=== PATIENT | female | born 1950 | race Hispanic/Latino ===

== ENCOUNTER 2016-11-09 09:05 | Observation (INO) | payer OTHER ==
[2016-11-09 10:13] LABS: BASO % 0.6 % (0.0-2.0); EOS # 0.1 K/uL (0.0-0.7); EOS % 2.2 % (0.0-4.0); HEMOGLOBIN 12.5 g/dL (11.0-16.0); LYMPH # 3.3 K/uL (1.0-4.3); LYMPH % 49.5 % (20.0-40.0); MEAN CELL VOLUME 87.4 fL (81.0-99.0); MEAN CORPUSCULAR HEMOGLOBIN 28.3 pg (27.0-31.0); MEAN CORPUSCULAR HGB CONC 32.4 g/dL (33.0-37.0); MEAN PLATELET VOLUME 8.4 fL (7.2-11.7); MONO # 0.7 K/uL (0.0-0.8); MONO % 10.7 % (0.0-10.0); NEUT # 2.5 K/uL (1.8-7.0); NRBC % 0.1 % (0.0-2.0); RBC 4.42 Mil/uL (3.80-5.20); RED CELL DISTRIBUTION WIDTH 12.7 % (11.5-14.5); WHITE BLOOD COUNT 6.6 K/uL (4.8-10.8)
[2016-11-09 10:17] LABS: ALBUMIN 4.4 g/dL (3.5-5.0)
[2016-11-09 10:20] LABS: ALB/GLOB RATIO 1.3 (1.0-2.1); ALT/SGPT 22 U/L (9-52); AST/SGOT 39 U/L (14-36); BLOOD UREA NITROGEN 20 mg/dL (7-17); GFR AFRICAN-AMERICAN > 60; GFR NON-AFRICAN AMERICAN > 60
[2016-11-09 10:21] LABS: CALCIUM 9.6 mg/dl (8.6-10.4)
[2016-11-09 10:22] LABS: INR 0.9; PROTHROMBIN TIME 10.7 SECONDS (9.7-12.2)
--- NOTE | 2016-11-09 10:59 | RAD ---
PROCEDURE: CHEST RADIOGRAPH, 1 VIEW HISTORY: Chest pain COMPARISON: 09/26/2014 FINDINGS: LUNGS: Mild venous congestion. Biapical pleural thickening with upper lobe granulomatous changes. Mild patchy increased markings at the lung bases. PLEURA: As above. CARDIOVASCULAR: Normal. OSSEOUS STRUCTURES: No significant abnormalities. VISUALIZED UPPER ABDOMEN: Normal. OTHER FINDINGS: None. IMPRESSION: Mild venous congestion. Biapical pleural thickening with upper lobe granulomatous changes. Mild patchy increased markings at the lung bases.
--- NOTE | 2016-11-09 11:36 | C.PDOC ---
History Of Present Illness 66 year old female presents to the ED with complaints of left sided chest pain, described as a pressure/heavy sensation, since this morning. Patient notes the pain radiates to her left arm with some associated mild SOB She has history of HTN and HLD. Patient also complains of left posterior shoulder and arm pain for three days. She denies falls/injuries, cough, fever, abdominal pain, nausea /vomiting, rash. Time Seen by Provider: 11/09/16 09:26 Chief Complaint (Nursing): Chest Pain History Per: Patient History/Exam Limitations: no limitations Onset/Duration Of Symptoms: Hrs (left sided chest pain ), Days (3 days of left shoulder and arm pain) Current Symptoms Are (Timing): Still Present Severity: Moderate Quality: Pressure (heavy sensation ), "Pain" Associated Symptoms: denies: Nausea, Dyspnea, Diaphoresis, Syncope Past Medical History Reviewed: Historical Data, Nursing Documentation, Vital Signs Vital Signs: Last Vital Signs Temp 98.2 F 11/10/16 16:00 Pulse 82 11/10/16 18:00 Resp 13 11/10/16 16:00 BP 140/80 11/10/16 16:00 Pulse Ox 99 11/10/16 16:00 - Medical History PMH: Anxiety, Depression, HTN, Hypercholesterolemia Family History: States: No Known Family Hx - Social History Hx Tobacco Use: No Hx Alcohol Use: No Hx Substance Use: No - Immunization History Hx Tetanus Toxoid Vaccination: No Hx Influenza Vaccination: No Hx Pneumococcal Vaccination: No Review Of Systems Except As Marked, All Systems Reviewed And Found Negative. Constitutional: Negative for: Fever, Chills Cardiovascular: Positive for: Chest Pain. Negative for: Palpitations Respiratory: Negative for: Cough, Shortness of Breath Gastrointestinal: Negative for: Nausea, Vomiting, Abdominal Pain, Diarrhea Musculoskeletal: Positive for: Shoulder Pain (left shoulder pain), Arm Pain ( left arm pain) Neurological: Negative for: Weakness, Numbness Physical Exam - Physical Exam Appears: Well, Non-toxic, In Acute Distress ( in mild discomfort ), Other ( speaking in full sentences) Skin: Warm, Dry, No Rash Head: Normacephalic Eye(s): bilateral: Normal Inspection Oral Mucosa: Moist Neck: Supple Chest: Symmetrical, No Tenderness Cardiovascular: Rhythm Regular Respiratory: Normal Breath Sounds, No Rales, No Rhonchi, No Wheezing Gastrointestinal/Abdominal: Normal Exam, Bowel Sounds, Soft, No Tenderness Extremity: Normal ROM (left shoulder pain worsens with movement, but full ROM intact), Tenderness (mild tenderness to the posterior/superior aspect of the left shoulder ), No Pedal Edema, No Calf Tenderness, Capillary Refill (< 2 sec all digits ), No Deformity, No Swelling Extremity: Bilateral: Atraumatic, Normal Color And Temperature, Normal ROM Pulses: Left Radial: Normal, Right Radial: Normal, Left Dorsalis Pedis: Normal, Right Dorsalis Pedis: Normal Neurological/Psych: Oriented x3, Normal Motor, Normal Sensation ED Course And Treatment - Laboratory Results Result Diagrams: 11/10/16 12:56 11/10/16 12:56 ECG: Interpreted By Me, Viewed By Me ECG Rhythm: Sinus Rhythm (76 bpm ) ECG Interpretation: Abnormal Interpretation Of ECG: Normal axis, T-wave inversions in III, and AVF, no acute ST-T wave changes. O2 Sat by Pulse Oximetry: 98 (room air ) Pulse Ox Interpretation: Normal - Radiology CXR: Interpreted by Me, Viewed By Me CXR Interpretation: Yes: No Acute Disease. No: Infiltrates Progress Note: Blood work, EKG, CXR ordered and reviewed. Patient was given PO aspirin. Due to history of HTN, HLD and abnormal EKG, patient will need obs tele. - Physician Consult Information Physician Contacted: Nancy Escobar Outcome Of Conversation: Discussed patient with Dr. Bello Escobar, agrees with telemetry obs to his service, requests Dr. Sesay cardio consult. Disposition - Disposition Disposition: HOSPITALIZED Disposition Time: 11:08 Condition: STABLE - Clinical Impression Clinical Impression: Chest pain - Scribe Statement The provider has reviewed the documentation as recorded by the Scribchong Carrion All medical record entries made by the Jeremiasibe were at my direction and personally dictated by me. I have reviewed the chart and agree that the record accurately reflects my personal performance of the history, physical exam, medical decision making, and the department course for this patient. I have also personally directed, reviewed, and agree with the discharge instructions and disposition. Decision To Admit - Pt Status Changed To: Hospital Disposition Of: Observation - . Bed Request Type: Telemetry Admitting Physician: Nancy Escobar Patient Diagnosis: Chest pain
--- NOTE | 2016-11-09 15:08 | CP.PCM.HP ---
History of Present Illness - History of Present Illness History of Present Illness: 66-year-old female non-smoker non-EtOH is with history of hypertension history of 4 hyperlipidemia came because of the chest pain getting worse since morning left-sided dull lasting for a few minutes to sometimes associated with nausea vomiting diaphoresis with EKG changes especially T-wave inversion in inferior leads II, III, and aVF patient has been having the pain for 3 days patient will be seen by a emergency room physician be done about the past the hottest patient claims to take the medications regularly Present on Admission - Present on Admission Any Indicators Present on Admission: No Review of Systems - Review of Systems Systems not reviewed;Unavailable: Acuity of Condition - Constitutional Constitutional: As Per HPI - EENT Eyes: As Per HPI Ears: As Per HPI Nose/Mouth/Throat: As Per HPI - Breasts Breasts: As Per HPI - Cardiovascular Cardiovascular: As Per HPI - Respiratory Respiratory: As Per HPI - Gastrointestinal Gastrointestinal: As Per HPI - Genitourinary Genitourinary: As Per HPI - Reproductive: Female Reproductive:Female: As Per HPI Past Patient History - Past Social History Smoking Status: Never Smoked - CARDIAC Hx Hypercholesterolemia: Yes Hx Hypertension: Yes - PSYCHIATRIC Hx Anxiety: Yes Hx Depression: Yes Hx Substance Use: No - SURGICAL HISTORY Hx Section: Yes Hx Hysterectomy: Yes - ANESTHESIA Hx Anesthesia: Yes Hx Anesthesia Reactions: No Meds Allergies/Adverse Reactions: Allergies Allergy/AdvReac Type Severity Reaction Status Date / Time No Known Allergies Allergy Verified 11/09/16 09:23 Physical Exam - Constitutional Appears: Well - Head Exam Head Exam: ATRAUMATIC, NORMAL INSPECTION, NORMOCEPHALIC - Eye Exam Eye Exam: EOMI, Normal appearance, PERRL Pupil Exam: NORMAL ACCOMODATION, PERRL - ENT Exam ENT Exam: Mucous Membranes Moist, Normal Exam - Neck Exam Neck exam: Positive for: Normal Inspection - Respiratory Exam Respiratory Exam: Decreased Breath Sounds - Cardiovascular Exam Cardiovascular Exam: REGULAR RHYTHM, +S1, +S2 - GI/Abdominal Exam GI & Abdominal Exam: Diminished Bowel Sounds, Soft - Rectal Exam Rectal Exam: Deferred - Neurological Exam Neurological exam: Oriented x3 Results - Vital Signs Recent Vital Signs: Last Vital Signs Temp 97.8 F 11/09/16 09:20 Pulse 62 11/09/16 11:19 Resp 14 11/09/16 11:19 BP 146/82 11/09/16 11:19 Pulse Ox 98 11/09/16 11:57 - Labs Result Diagrams: 11/09/16 09:58 11/09/16 09:58 Assessment & Plan (1) Chest pain Status: Acute (2) Hypertension Status: Acute (3) HLD (hyperlipidemia) Status: Acute - Assessment and Plan (Free Text) Plan: Aspirin Plavix Amlodipine Atenolol Cardiology consult [email or web address] Heparin Protonix Continue as ordered Cardiac diet
[2016-11-09 16:05] LABS: CK-MB 0.43 ng/mL (0.0-3.38)
--- NOTE | 2016-11-10 01:43 | CP.PCM.CON ---
History of Present Illness - History of Present Illness History of Present Illness: Ms. Magdalena Tom is a 66-year-old female with past medical history significant for hypertension dyslipidemia who is presenting with complains of left-sided chest pain. According to the patient she had an episode of chest pain described as a pressure-like sensation accompanied with mild shortness of breath. According to the patient the pain radiated to her left arm along the left shoulder. Patient has known history of arthritis for which she has pain in the shoulders. Patient said this episode was somewhat different from her prior episode of joint discomfort. Patient denies having any cough fever chills nausea vomiting abdominal pain discomfort.At baseline Ms. Tom has somewhat limited activity secondary to arthritis involving the hands and knees. But she denies having any resting chest pains other than this episode which brought her to the emergency room. At baseline she has NYHA functional class II dyspnea and has limited mobility secondary to advanced arthritis. Review of Systems - Constitutional Constitutional: As Per HPI, Fatigue - EENT Eyes: As Per HPI Ears: As Per HPI Nose/Mouth/Throat: As Per HPI - Cardiovascular Cardiovascular: Chest Pain at Rest, Chest Pain with Activity, Dyspnea, Dyspnea on Exertion, Radiating Pain - Respiratory Respiratory: Dyspnea on Exertion - Gastrointestinal Gastrointestinal: As Per HPI - Musculoskeletal Musculoskeletal: Arthralgias - Integumentary Integumentary: As Per HPI - Psychiatric Psychiatric: As Per HPI Past Patient History - Past Social History Smoking Status: Never Smoked Alcohol: None Drugs: Denies - CARDIAC Hx Cardiac Disorders: No Hx Hypercholesterolemia: Yes Hx Hypertension: Yes - PSYCHIATRIC Hx Anxiety: Yes Hx Depression: Yes Hx Substance Use: No - SURGICAL HISTORY Hx Section: Yes Hx Hysterectomy: Yes - ANESTHESIA Hx Anesthesia: Yes Hx Anesthesia Reactions: No Meds Allergies/Adverse Reactions: Allergies Allergy/AdvReac Type Severity Reaction Status Date / Time No Known Allergies Allergy Verified 11/09/16 09:23 - Medications Medications: Current Medications Amlodipine Besylate (Norvasc) 5 mg PO DAILY [facility] Aspirin (Aspirin Chewable) 81 mg PO DAILY [facility] Atenolol (Tenormin) 25 mg PO DAILY [facility] Clopidogrel Bisulfate (Plavix) 75 mg PO DAILY [facility] Physical Exam - Constitutional Appears: Well, No Acute Distress - Head Exam Head Exam: ATRAUMATIC, NORMAL INSPECTION, NORMOCEPHALIC - Eye Exam Eye Exam: EOMI, Normal appearance, PERRL Pupil Exam: NORMAL ACCOMODATION, PERRL - ENT Exam ENT Exam: Mucous Membranes Moist, Normal Exam - Neck Exam Neck exam: Positive for: Normal Inspection - Respiratory Exam Respiratory Exam: Clear to Auscultation Bilateral, NORMAL BREATHING PATTERN - Cardiovascular Exam Cardiovascular Exam: REGULAR RHYTHM, +S1, +S2, Systolic Murmur - GI/Abdominal Exam GI & Abdominal Exam: Normal Bowel Sounds, Soft - Rectal Exam Rectal Exam: Deferred - Back Exam Back exam: NORMAL INSPECTION - Neurological Exam Neurological exam: Alert, CN II-XII Intact, Oriented x3, Reflexes Normal - Psychiatric Exam Psychiatric exam: Normal Affect, Normal Mood - Skin Skin Exam: Normal Color Results - Vital Signs Recent Vital Signs: Last Vital Signs Temp 98 F 11/10/16 00:49 Pulse 82 11/10/16 00:49 Resp 18 11/10/16 00:49 BP 128/84 11/10/16 00:49 Pulse Ox 98 11/10/16 00:49 - Labs Result Diagrams: 11/09/16 09:58 11/09/16 09:58 Labs: Laboratory Results - last 24 hr 11/09/16 11/09/16 11/09/16 15:41 15:41 23:54 Hemoglobin A1c 6.3 Total Creatine Kinase 43 38 CK-MB (Mass) 0.43 0.40 Troponin I Cancelled Troponin I, Quant < 0.0120 < 0.0120 - EKG Data EKG shows normal: Sinus rhythm, [place], Intervals, ST-T waves Rate: Normal - EKG Data EKG comments: Nonspecific T-wave changes noted in inferior lateral leads Assessment & Plan (1) Chest pain Assessment and Plan: Ms. Tom 66-year-old female with history of hypertension dyslipidemia presented with complaints of typical chest pain. EKG nonspecific and initial set of troponin is negative I would recommend to rule out ACS with 2 more serial sets of enzymes. If she is ruled out would consider further ischemic evaluation with Lexiscan nuclear stress test which will be arranged in the morning. I will also check patient's transthoracic echocardiogram to evaluate pulmonary artery pressures and have underlying heart disease. Status: Acute (2) Hypertension Assessment and Plan: I would resume her home regimen of blood pressure medications continue to monitor serial blood pressures in the hospital Status: Acute (3) HLD (hyperlipidemia) Assessment and Plan: Check fasting lipid profile in the morning Depending on the above testing would decide patient's antihyperlipidemic regimen. Status: Acute
[2016-11-10 13:03] LABS: MEAN CELL VOLUME 86.7 fL (81.0-99.0); MEAN CORPUSCULAR HEMOGLOBIN 28.3 pg (27.0-31.0); MEAN CORPUSCULAR HGB CONC 32.7 g/dL (33.0-37.0); MEAN PLATELET VOLUME 8.3 fL (7.2-11.7); RBC 4.61 Mil/uL (3.80-5.20); RED CELL DISTRIBUTION WIDTH 12.7 % (11.5-14.5); WHITE BLOOD COUNT 6.2 K/uL (4.8-10.8)
[2016-11-10 13:16] LABS: ALBUMIN 4.2 g/dL (3.5-5.0)
[2016-11-10 13:19] LABS: ALB/GLOB RATIO 1.3 (1.0-2.1); AST/SGOT 22 U/L (14-36); GFR AFRICAN-AMERICAN > 60; GFR NON-AFRICAN AMERICAN > 60
[2016-11-10 13:20] LABS: ALT/SGPT 24 U/L (9-52); BLOOD UREA NITROGEN 14 mg/dL (7-17); CALCIUM 9.5 mg/dl (8.6-10.4)
--- NOTE | 2016-11-10 13:30 | CP.PCM.PN ---
Subjective - Date & Time of Evaluation Date of Evaluation: 11/10/16 Time of Evaluation: 13:26 - Subjective Subjective: PGY2 progress note for Dr. Escobar Pt is seen and exained at bedside. No acute events over night. Patient denies having any CP, SOB, abd pain, N/V/D/C. Patient is tolerating diet. 12 point ROS are negative except for the above mentioned. Objective - Vital Signs/Intake and Output Vital Signs (last 24 hours): Temp Pulse Resp BP Pulse Ox 98.1 F 71 23 138/86 96 11/10/16 06:00 11/10/16 06:00 11/10/16 06:00 11/10/16 05:28 11/10/16 06:00 Intake and Output: 11/10/16 11/10/16 06:59 18:59 Intake Total 450 Output Total 550 Balance -100 - Medications Medications: Current Medications Amlodipine Besylate (Norvasc) 5 mg PO DAILY [facility] Last Admin: 11/10/16 10:12 Dose: 5 mg Aspirin (Aspirin Chewable) 81 mg PO DAILY [facility] Last Admin: 11/10/16 10:12 Dose: 81 mg Atenolol (Tenormin) 25 mg PO DAILY [facility] Last Admin: 11/10/16 12:02 Dose: 25 mg Clopidogrel Bisulfate (Plavix) 75 mg PO DAILY [facility] Last Admin: 11/10/16 10:11 Dose: 75 mg Pneumococcal Polyvalent Vaccine (Pneumovax 23 Vaccine) 0.5 ml IM .ONCE ONE Stop: 11/12/16 10:01 - Labs Labs: 11/10/16 12:56 11/10/16 12:56 PT 10.7 SECONDS (9.7-12.2) 11/09/16 09:58 INR 0.9 11/09/16 09:58 APTT 29 SECONDS (21-34) 11/09/16 09:58 - Constitutional Appears: Non-toxic, No Acute Distress - Head Exam Head Exam: ATRAUMATIC - ENT Exam ENT Exam: Mucous Membranes Moist - Respiratory Exam Respiratory Exam: Clear to Ausculation Bilateral, NORMAL BREATHING PATTERN. absent: Accessory Muscle Use, Rales, Rhonchi, Wheezes, Respiratory Distress - Cardiovascular Exam Cardiovascular Exam: REGULAR RHYTHM, +S1, +S2. absent: Gallop, Rubs, Murmur - GI/Abdominal Exam GI & Abdominal Exam: Soft, Normal Bowel Sounds. absent: Distended, Firm, Guarding, Rigid, Tenderness, Organomegaly - Extremities Exam Extremities Exam: absent: Pedal Edema, Tenderness - Neurological Exam Neurological Exam: Alert, Awake, Oriented x3 - Psychiatric Exam Psychiatric exam: Normal Affect, Normal Mood - Skin Skin Exam: Dry, Intact, Normal Color, Warm Assessment and Plan - Assessment and Plan (Free Text) Assessment: 66 year old female with past medical history of HTN, HLD is admitted for CP r/o ACS. CXR on admission was negative. Troponin x 3 were negative. EKG showed NSR with no ST changes, and slight LVH. Patient had echocardiogram done today with preliminary report showing LVEF of 62%. While here, patient was started on Plavix 75 mg po qd, aspirin 81 mg po qd and Norvasc 5 mg po qd. Her home medication, Atenolol 25 mg po qd was also continued. Patient is discharged home with the following medications: Plavix 75 mg po qd, Aspirin 81 mg po qd, Atenolol 25 mg po qd and Norvasc 5 mg po qd, Simvastatin 5 mg po qd, Lisinopril-HCTZ 10/12.5 mg po 1 tab daily. Patient is to follow up with PMDDr. Escobar within 2 days. Patient is also told to follow up with facilitator upon discharge for outpatient stress test. Patient is to call Patient is told to return to ED is symptoms worsen.
[2016-11-10 16:11] VITALS: BP 140/80; RESP 13; TEMP 98.2
--- NOTE | 2016-11-10 16:34 | CP.PCM.PN ---
Subjective - Date & Time of Evaluation Date of Evaluation: 11/10/16 Time of Evaluation: 16:20 - Subjective Subjective: feeling fine, denies any complaints, wants to go home Objective - Vital Signs/Intake and Output Vital Signs (last 24 hours): Temp Pulse Resp BP Pulse Ox 98.2 F 75 13 140/80 99 11/10/16 16:00 11/10/16 16:00 11/10/16 16:00 11/10/16 16:00 11/10/16 16:00 Intake and Output: 11/10/16 11/10/16 06:59 18:59 Intake Total 450 600 Output Total 550 Balance -100 600 - Medications Medications: Current Medications Amlodipine Besylate (Norvasc) 5 mg PO DAILY [facility] Last Admin: 11/10/16 10:12 Dose: 5 mg Aspirin (Aspirin Chewable) 81 mg PO DAILY [facility] Last Admin: 11/10/16 10:12 Dose: 81 mg Atenolol (Tenormin) 25 mg PO DAILY [facility] Last Admin: 11/10/16 12:02 Dose: 25 mg Clopidogrel Bisulfate (Plavix) 75 mg PO DAILY [facility] Last Admin: 11/10/16 10:11 Dose: 75 mg Pneumococcal Polyvalent Vaccine (Pneumovax 23 Vaccine) 0.5 ml IM .ONCE ONE Stop: 11/12/16 10:01 - Labs Labs: 11/10/16 12:56 11/10/16 12:56 PT 10.7 SECONDS (9.7-12.2) 11/09/16 09:58 INR 0.9 11/09/16 09:58 APTT 29 SECONDS (21-34) 11/09/16 09:58 - Head Exam Head Exam: ATRAUMATIC, NORMAL INSPECTION, NORMOCEPHALIC - Eye Exam Eye Exam: EOMI, Normal appearance, PERRL Pupil Exam: NORMAL ACCOMODATION, PERRL - ENT Exam ENT Exam: Mucous Membranes Moist, Normal Exam - Neck Exam Neck Exam: Full ROM, Normal Inspection - Respiratory Exam Respiratory Exam: Clear to Ausculation Bilateral, NORMAL BREATHING PATTERN - Cardiovascular Exam Cardiovascular Exam: REGULAR RHYTHM, RRR, +S1, +S2, Murmur - GI/Abdominal Exam GI & Abdominal Exam: Soft, Normal Bowel Sounds - Rectal Exam Rectal Exam: Deferred - Extremities Exam Extremities Exam: Full ROM, Normal Capillary Refill, Normal Inspection - Back Exam Back Exam: NORMAL INSPECTION - Psychiatric Exam Psychiatric exam: Normal Affect, Normal Mood - Skin Skin Exam: Normal Color Assessment and Plan (1) Chest pain Assessment & Plan: ACS ruled out with serial enzymes Echo shows normal stable to dc home and will arrange for outpt f/u and stress test Status: Acute (2) Hypertension Assessment & Plan: BP well controlled cont home BP regimen on discharge including BB, acei/hctz and CCB Status: Acute (3) HLD (hyperlipidemia) Assessment & Plan: Lipid profile not done on this admission would recommend to keep pt on low dose statins Status: Acute
--- NOTE | 2016-11-10 17:17 | CP.PCM.PN ---
Subjective - Date & Time of Evaluation Date of Evaluation: 11/10/16 Time of Evaluation: 15:20 - Subjective Subjective: clinically same Objective - Vital Signs/Intake and Output Vital Signs (last 24 hours): Temp Pulse Resp BP Pulse Ox 98.2 F 75 13 140/80 99 11/10/16 16:00 11/10/16 16:00 11/10/16 16:00 11/10/16 16:00 11/10/16 16:00 Intake and Output: 11/10/16 11/10/16 06:59 18:59 Intake Total 450 600 Output Total 550 Balance -100 600 - Medications Medications: Current Medications Amlodipine Besylate (Norvasc) 5 mg PO DAILY [facility] Last Admin: 11/10/16 10:12 Dose: 5 mg Aspirin (Aspirin Chewable) 81 mg PO DAILY [facility] Last Admin: 11/10/16 10:12 Dose: 81 mg Atenolol (Tenormin) 25 mg PO DAILY [facility] Last Admin: 11/10/16 12:02 Dose: 25 mg Clopidogrel Bisulfate (Plavix) 75 mg PO DAILY [facility] Last Admin: 11/10/16 10:11 Dose: 75 mg Pneumococcal Polyvalent Vaccine (Pneumovax 23 Vaccine) 0.5 ml IM .ONCE ONE Stop: 11/12/16 10:01 - Labs Labs: 11/10/16 12:56 11/10/16 12:56 PT 10.7 SECONDS (9.7-12.2) 11/09/16 09:58 INR 0.9 11/09/16 09:58 APTT 29 SECONDS (21-34) 11/09/16 09:58 - Constitutional Appears: Well - Head Exam Head Exam: ATRAUMATIC, NORMAL INSPECTION, NORMOCEPHALIC - Eye Exam Eye Exam: EOMI, Normal appearance, PERRL Pupil Exam: NORMAL ACCOMODATION, PERRL - ENT Exam ENT Exam: Mucous Membranes Moist, Normal Exam - Neck Exam Neck Exam: Full ROM, Normal Inspection. absent: Lymphadenopathy - Respiratory Exam Respiratory Exam: Decreased Breath Sounds - Cardiovascular Exam Cardiovascular Exam: REGULAR RHYTHM, +S1, +S2 - GI/Abdominal Exam GI & Abdominal Exam: Soft, Diminished Bowel Sounds - Rectal Exam Rectal Exam: Deferred Assessment and Plan (1) Chest pain Status: Acute (2) Hypertension Status: Acute (3) HLD (hyperlipidemia) Status: Acute
[2016-11-10] MEDS ORDERED: Pneumococcal 23-Valent Vaccine IM ONE (17:45)
[2016-11-10 19:43] VITALS: PULSE 82
--- NOTE | 2016-11-11 18:59 | CARD ---
APPROVED REPORT EXAM: Two-dimensional and M-mode echocardiogram with Doppler and color Doppler. Other Information Quality : GoodRhythm : NSR INDICATION Chest Pain RISK FACTORS Hypertension Hyperlipidemia M-Mode DIMENSIONS RVDd1.37 (2.1-3.2cm)Left Atrium (MM)3.98 (2.5-4.0cm) IVSd1.20 (0.7-1.1cm)Aortic Root3.39 (2.2-3.7cm) LVDd4.85 (4.0-5.6cm)Aortic Cusp Exc.1.48 (1.5-2.0cm) PWd1.07 (0.7-1.1cm)FS (%) 34 % LVDs3.22 (2.0-3.8cm)LVEF (%)62 (>50%) Aortic Valve AI P 1/2 [id number] Mitral Valve MV E Ddbenhab06.3cm/sMV A Manuqywt626.7cm/sE/A ratio0.7 TDI E/Lateral E'0.0E/Medial E'0.0 Tricuspid Valve TR Peak [id number]/sTR Peak Gr.[id number] LEFT VENTRICLE The left ventricle is normal size. There is normal left ventricular wall thickness. The left ventricular function is normal. The left ventricular ejection fraction is within the normal range. There is normal LV segmental wall motion. The left ventricular diastolic function is normal. No left ventricle thrombus noted on this study. RIGHT VENTRICLE The right ventricle is normal size. There is normal right ventricular wall thickness. The right ventricular systolic function is normal. ATRIA The left atrium is borderline dilated. The right atrium is mildly dilated. The interatrial septum is intact with no evidence for an atrial septal defect. AORTIC VALVE The aortic valve is normal in structure. There is mild aortic regurgitation. There is no aortic valvular stenosis. There is no aortic valvular vegetation. MITRAL VALVE The mitral valve is normal in structure. There is no evidence of mitral valve prolapse. There is no mitral valve stenosis. Mitral regurgitation is moderate. TRICUSPID VALVE The tricuspid valve is normal in structure. There is moderate tricuspid regurgitation. PAP = 30-40 mmHg There is no tricuspid valve prolapse or vegetation. There is no tricuspid valve stenosis. PULMONIC VALVE The pulmonary valve is normal in structure. There is no pulmonic valvular regurgitation. There is no pulmonic valvular stenosis. GREAT VESSELS The aortic root is normal in size. The ascending aorta is normal in size. underfilled IVC <Conclusion> The left ventricular ejection fraction is within the normal range. The left ventricular diastolic function is normal. There is mild aortic regurgitation. Mitral regurgitation is moderate. There is moderate tricuspid regurgitation. PAP = 30-40 mmHg underfilled IVC
--- NOTE | 2016-11-12 11:01 | CARD ---
APPROVED REPORT EKG Measurement Heart [id number] [id number] <Conclusion> Normal sinus rhythm Minimal voltage criteria for LVH, may be normal variant Borderline ECG
--- NOTE | 2016-11-12 11:52 | CARD ---
APPROVED REPORT EKG Measurement Heart [id number] [place] [id number] <Conclusion> Normal sinus rhythm Nonspecific T wave abnormality Abnormal ECG
--- NOTE | 2016-11-12 14:02 | CARD ---
APPROVED REPORT EKG Measurement Heart [id number] [place] [id number] <Conclusion> Sinus bradycardia Nonspecific T wave abnormality Abnormal ECG
[2016-11-18 13:10] VITALS: O2SAT 98
== END 2016-11-10 18:45 | disposition home or self-care (01) ==
LOC: C.ER 09:05 → C.9E 11:08 → C.9I 11-10 00:14
PROVIDERS: ADMIT Internal Medicine Nephrology; ATTEND Internal Medicine Nephrology
DX: R07.89 Other chest pain (principal); E78.5 Hyperlipidemia, unspecified; I10 Essential (primary) hypertension
CPT/HCPCS: 36415; 71010; 80053; 82550; 82553; 82948; 83036; 84484; 85025; 85027; 85610; 85730; 87081; 90471; 90732; 93306; 96374; G0378; J1644

== ENCOUNTER 2017-10-30 10:35 | Emergency (ER) | payer OTHER ==
[2017-10-30 10:56] VITALS: RESP 16; TEMP 97.8; O2SAT 98
--- NOTE | 2017-10-30 12:05 | C.PDOC ---
History Of Present Illness 67 y/o female presenting to the ER complaining of right posterior shoulder pain for one week. She reports history of osteoarthritis. Patient denies trauma/ injuries, chest pain, shortness of breath, cough, rash, fever. Time Seen by Provider: 10/30/17 10:55 Chief Complaint (Nursing): Upper Extremity Problem/Injury History Per: Patient History/Exam Limitations: no limitations Onset/Duration Of Symptoms: Days Current Symptoms Are (Timing): Still Present Severity: Mild Exacerbating Factor(s): Movement Past Medical History Reviewed: Historical Data, Nursing Documentation, Vital Signs Vital Signs: Last Vital Signs Temp 97.8 F 10/30/17 10:53 Pulse 78 10/30/17 12:08 Resp 16 10/30/17 12:08 BP 123/78 10/30/17 12:08 Pulse Ox 98 10/30/17 12:54 - Medical History PMH: Anxiety, Arthritis, Depression, HTN, Hypercholesterolemia Surgical History: No Surg Hx Other Surgeries: Hx of surgeries Family History: States: No Known Family Hx - Social History Hx Tobacco Use: No Hx Alcohol Use: No Hx Substance Use: No - Immunization History Hx Tetanus Toxoid Vaccination: No Hx Influenza Vaccination: No Hx Pneumococcal Vaccination: No Review Of Systems Constitutional: Negative for: Fever Cardiovascular: Negative for: Chest Pain Respiratory: Negative for: Cough, Shortness of Breath Musculoskeletal: Positive for: Shoulder Pain (Right posterior shoulder pain) Skin: Negative for: Rash Physical Exam - Physical Exam Appears: Well, Non-toxic, Other (in mild pain ) Skin: Normal Color, Warm, Dry, No Rash Head: Normacephalic Eye(s): bilateral: Normal Inspection Oral Mucosa: Moist Neck: Normal, No Midline Cervical Tenderness, No Paracervical Tenderness, No Step Off Deformity, Supple, Other (Nontender) Chest: Symmetrical Cardiovascular: Rhythm Regular Respiratory: Normal Breath Sounds, No Rales, No Rhonchi, No Wheezing Extremity: Normal ROM, Tenderness (Right shoulder tender to palpitation at the posterior aspect above the spine of scapula. ), Capillary Refill (< 2 sec all digits ), No Deformity, No Swelling, Other (Mild pain ) Extremity: Bilateral: Atraumatic, Normal Color And Temperature, Normal ROM Pulses: Left Radial: Normal, Right Radial: Normal Neurological/Psych: Oriented x3, Normal Sensation Gait: Steady ED Course And Treatment O2 Sat by Pulse Oximetry: 98 (RA) Pulse Ox Interpretation: Normal - Other Rad XR Right shoulder X-Ray: Viewed By Me, Read By Radiologist Interpretation: Accession No. : [id number]. Patient Name / ID : ISAEL LIU / [id number]. Exam Date : 10/30/2017 11:24:46 ( Approved ). Study Comment : Sex / Age : F / 67Y. Creator : Yovani Pettit MD. Dictator : Yovani Pettit MD. 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 Approver2 : Report Date : 10/30/2017 12:06:05. My Comment : . PROCEDURE: Radiographs of the Right Shoulder. HISTORY: RIGHT SHOULDER PAIN. COMPARISON : No prior. FINDINGS: BONES: Normal. No fracture. JOINTS: Normal. Glenohumeral and acromioclavicular joints preserved. No osteoarthritis. SOFT TISSUES: Normal. OTHER FINDINGS: None. IMPRESSION: Normal radiographs of the right shoulder. Progress Note: Patient given Flexeril 10mg PO and Toradol 30mg IM in ED. Xrays of right shoulder ordered and reviewed. Reevaluation Time: 12:05 Reassessment Condition: Improved (Patient reassessed, pain has improved and she states she feels better. Xrays unremarkable. Patient given Rx for flexeril to be used in conjunction with her naprosyn. She was instructed to follow up with orthopedics within 1 week. She understands she should return to ED if symptoms worsen.) Disposition Counseled Patient/Family Regarding: Studies Performed, Diagnosis, Need For Followup, Rx Given - Disposition Referrals: [facility] [Outside] Dayron Veliz MD [Staff Provider] - Disposition: HOME/ ROUTINE Disposition Time: 12:05 Condition: STABLE Additional Instructions: FOLLOW UP WITH ORTHOPEDICS WITHIN 1 WEEK USE MEDICATION TOGETHER WITH YOUR NAPROSYN RETURN TO EMERGENCY ROOM IF SYMPTOMS WORSEN SEGUIMIENTO CON ORTOPEDIA DENTRO DE 1 SEMANA USE MEDICAMENTOS JUNTOS CON VILLALOBOS NAPROSNNA REGRESE AL BRENDEN DE EMERGENCIA SI LOS SNTOMAS EMPEORAN Prescriptions: Cyclobenzaprine [Flexeril] 10 mg PO BID PRN #15 tab PRN Reason: Muscle Spasm Instructions: Osteoarthritis (DC), Shoulder Sprain (DC) Forms: [employer] (French) Print Language: SOUTH AFRICAN - POA Present On Arrival: None - Clinical Impression Clinical Impression: Osteoarthritis, Right shoulder pain - Scribe Statement The provider has reviewed the documentation as recorded by the Scribe Mary Barrios All medical record entries made by the Scribe were at my direction and personally dictated by me. I have reviewed the chart and agree that the record accurately reflects my personal performance of the history, physical exam, medical decision making, and the department course for this patient. I have also personally directed, reviewed, and agree with the discharge instructions and disposition.
--- NOTE | 2017-10-30 12:06 | RAD ---
PROCEDURE: Radiographs of the Right Shoulder HISTORY: RIGHT SHOULDER PAIN COMPARISON: No prior. FINDINGS: BONES: Normal. No fracture. JOINTS: Normal. Glenohumeral and acromioclavicular joints preserved. No osteoarthritis. SOFT TISSUES: Normal. OTHER FINDINGS: None. IMPRESSION: Normal radiographs of the right shoulder.
[2017-10-30 12:09] VITALS: BP 123/78; PULSE 78
== END 2017-10-30 12:08 | disposition home or self-care (01) ==
LOC: C.ER 10:35
DX: M19.011 Primary osteoarthritis, right shoulder (principal); M25.511 Pain in right shoulder
CPT/HCPCS: 73030; 96372; 99283; J1885

== ENCOUNTER 2017-11-17 06:38 | Emergency (ER) | payer OTHER ==
[2017-11-17 06:52] VITALS: TEMP 98.7
--- NOTE | 2017-11-17 07:30 | C.PDOC ---
History Of Present Illness 67 y/o female with history of HTN and Arthritis presents to ED with c/o dizziness, weakness associated with nausea since she woke up this morning. Patient reports she has not been able to sleep well "for the last couple of days " secondary to having cardiac surgery and taking care of him. Patient states she took Citalopram and Percocet last night. Patient admits to sob and denies fever, chills vomiting, numbness or any other complaints at this time. Time Seen by Provider: 11/17/17 07:10 Chief Complaint (Nursing): Dizziness/Lightheaded History Per: Patient History/Exam Limitations: no limitations Onset/Duration Of Symptoms: Hrs Current Symptoms Are (Timing): Still Present Past Medical History Reviewed: Historical Data, Nursing Documentation, Vital Signs Vital Signs: Last Vital Signs Temp 98.7 F 11/17/17 09:11 Pulse 82 11/17/17 09:11 Resp 18 11/17/17 09:11 BP 157/88 H 11/17/17 09:11 Pulse Ox 100 11/17/17 09:11 - Medical History PMH: Anxiety, Arthritis, Depression, HTN, Hypercholesterolemia Surgical History: No Surg Hx Family History: States: No Known Family Hx - Social History Hx Tobacco Use: No Hx Alcohol Use: No Hx Substance Use: No - Immunization History Hx Tetanus Toxoid Vaccination: No Hx Influenza Vaccination: No Hx Pneumococcal Vaccination: No Review Of Systems Constitutional: Negative for: Fever, Chills Cardiovascular: Negative for: Chest Pain Respiratory: Positive for: Shortness of Breath Gastrointestinal: Positive for: Nausea. Negative for: Vomiting, Abdominal Pain Neurological: Positive for: Weakness, Dizziness. Negative for: Numbness, Headache Physical Exam - Physical Exam Appears: Non-toxic, No Acute Distress Skin: Warm, Dry, No Rash Head: Atraumatic, Normacephalic Eye(s): bilateral: Normal Inspection (No nystagmus) Oral Mucosa: Moist Neck: Normal ROM, Supple Cardiovascular: Rhythm Regular Respiratory: Normal Breath Sounds, No Rales, No Rhonchi, No Wheezing Gastrointestinal/Abdominal: Soft, No Tenderness, No Guarding, No Rebound Extremity: No Pedal Edema, Capillary Refill (<2 seconds) Neurological/Psych: Oriented x3, Normal Speech, Normal Cognition, Normal Cranial Nerves, Normal Motor, Normal Sensation ED Course And Treatment - Laboratory Results Result Diagrams: 11/17/17 07:56 11/17/17 07:56 ECG: Interpreted By Me, Viewed By Me ECG Rhythm: Sinus Rhythm Rate From EC (BPM) O2 Sat by Pulse Oximetry: 97 (RA) Pulse Ox Interpretation: Normal Medical Decision Making Medical Decision Making: Patient slept in the ED, feeling better, requesting discharge. Disposition Counseled Patient/Family Regarding: Studies Performed, Need For Followup, Rx Given - Disposition Referrals: Roman Cameron MD [Staff Provider] - Disposition: HOME/ ROUTINE Disposition Time: 09:40 Condition: IMPROVED Forms: [facility] (Portuguese), General Discharge Instructions - Clinical Impression Clinical Impression: Dizziness - Scribe Statement The provider has reviewed the documentation as recorded by the Scribchong Springer All medical record entries made by the Scribe were at my direction and personally dictated by me. I have reviewed the chart and agree that the record accurately reflects my personal performance of the history, physical exam, medical decision making, and the department course for this patient. I have also personally directed, reviewed, and agree with the discharge instructions and disposition.
[2017-11-17 08:01] LABS: BASO % 0.5 % (0.0-2.0); EOS # 0.1 K/uL (0.0-0.7); EOS % 0.8 % (0.0-4.0); HEMOGLOBIN 12.1 g/dL (11.0-16.0); LYMPH % 24.7 % (20.0-40.0); MEAN CELL VOLUME 86.5 fL (81.0-99.0); MEAN CORPUSCULAR HEMOGLOBIN 29.2 pg (27.0-31.0); MEAN CORPUSCULAR HGB CONC 33.8 g/dL (33.0-37.0); MEAN PLATELET VOLUME 7.8 fL (7.2-11.7); MONO # 0.7 K/uL (0.0-0.8); MONO % 8.8 % (0.0-10.0); NEUT # 5.2 K/uL (1.8-7.0); NEUT % 65.2 % (50.0-75.0); RBC 4.14 Mil/uL (3.80-5.20); RED CELL DISTRIBUTION WIDTH 13.6 % (11.5-14.5)
[2017-11-17 08:46] LABS: ALB/GLOB RATIO 1.4 (1.0-2.1); ALBUMIN 4.3 g/dL (3.5-5.0); ALT/SGPT 16 U/L (9-52); AST/SGOT 28 U/L (14-36); BLOOD UREA NITROGEN 13 mg/dL (7-17); CALCIUM 9.2 mg/dl (8.6-10.4); GFR AFRICAN-AMERICAN > 60; GFR NON-AFRICAN AMERICAN > 60
[2017-11-17 09:11] VITALS: BP 157/88; PULSE 82; RESP 18
[2017-11-17 09:41] VITALS: O2SAT 97
--- NOTE | 2017-11-18 17:09 | CARD ---
APPROVED REPORT Date of service: 11/17/2017 EKG Measurement Heart [id number] <Conclusion> Normal sinus rhythm Possible Left atrial enlargement Left ventricular hypertrophy Nonspecific T wave abnormality Prolonged QT Abnormal ECG
== END 2017-11-17 09:48 | disposition home or self-care (01) ==
LOC: C.ER 06:38
DX: R42 Dizziness and giddiness (principal); E78.00 Pure hypercholesterolemia, unspecified; I10 Essential (primary) hypertension